=== PATIENT | male | born 1980 | race Caucasian/White ===

== ENCOUNTER 2019-12-05 11:45 | Emergency (ER) | payer OTHER ==
[~2019-12-05] VITALS: Ht 177.8 cm; Wt 90.7 kg
[2019-12-05 12:29] VITALS: BP_SYST 117
--- NOTE | 2019-12-05 12:30 | NUR ---
PATIENT TO ER #[id number]
--- NOTE | 2019-12-05 13:11 | NUR ---
DR VERA IN TO ASSESS
--- NOTE | 2019-12-05 13:20 | NUR ---
Pt came in for a needle stick x today. Pt stable, triage vitals WNL.
[2019-12-05] MEDS ORDERED: DIPH-TET-PERTUS Vaccine 0.5 ML VIAL (ADACEL) I.M. ONE (13:45)
[2019-12-05] MEDS ORDERED: BACITRACIN 1 GM OINT TP ONE (13:45)
--- NOTE | 2019-12-05 13:51 | NUR ---
Spoke with pharmacist Gerhard, per pharmacist, patient would need hepatitis vaccine. Spoke with Dr. Mcmullen, he wants the patient to have immunoglobulin, not the vaccine. Gerhard stated that it is for neonates, confirmed verbally, Dr. Mcmullen did want immunoglobulin to be administered and not the vaccine. Gerhard to send medication to ED for administration.
[2019-12-05] MEDS ORDERED: HEPATITIS B IMMUNE GLOBULIN 0.5 ML PED SYRIN (HYPERHEP-B) I.M. ONE (14:00)
--- NOTE | 2019-12-05 14:01 | NUR ---
Pt given TDap and Hepb immunoglobbin. Pt tolerated well, no adverse reaction noted. VIS given to patient.
--- NOTE | 2019-12-05 14:25 | NUR ---
Patient given written and verbal discharge instructions and verbalizes understanding. ER MD discussed with patient the results and treatment provided. Patient in stable condition. ID arm band removed. Patient educated on pain management and to follow up with PMD. Pain Scale 0/10. Opportunity for questions provided and answered. Medication side effect fact sheet provided.
[2019-12-05 14:28] VITALS: BP_SYST 117
[2019-12-06 12:09] LABS: HEPATITIS B CORE AB, TOTAL Negative (Negative); HEPATITIS B SURFACE AG Negative (Negative); HEPATITIS C VIRUS AB <0.1 s/co ratio (0.0-0.9)
== END 2019-12-05 14:28 | disposition home or self-care (01) ==
LOC: SED 11:45
DX: S61.032A Puncture wound without foreign body of left thumb without damage to nail, initial encounter (principal); W31.89XA Contact with other specified machinery, initial encounter; Y93.89 Activity, other specified; Y92.89 Other specified places as the place of occurrence of the external cause; Y99.8 Other external cause status
CPT/HCPCS: 36415; 86592; 86704; 86706; 86803; 87340; 90371; 90715; 96372; 99284

== ENCOUNTER 2019-12-12 12:22 | Emergency (ER) | payer OTHER ==
[~2019-12-12] VITALS: Ht 177.8 cm; Wt 90.7 kg
[2019-12-12 12:22] VITALS: BP_SYST 142
[2019-12-12 14:49] VITALS: BP_SYST 142
== END 2019-12-12 14:38 | disposition home or self-care (01) ==
LOC: SED 12:22
DX: S33.5XXA Sprain of ligaments of lumbar spine, initial encounter (principal); Z88.8 Allergy status to other drugs, medicaments and biological substances; X58.XXXA Exposure to other specified factors, initial encounter; Y93.89 Activity, other specified; Y92.89 Other specified places as the place of occurrence of the external cause; Y99.8 Other external cause status
CPT/HCPCS: 72131; 99284